=== PATIENT | female | born 2000 | race Two or more races ===

== ENCOUNTER 2020-10-29 05:41 | Emergency (ER) | payer OTHER ==
[~2020-10-29] VITALS: Ht 152.4 cm; Wt 51.4 kg
[2020-10-29] MEDS ORDERED: IBUPROFEN 400 MG TABLET PO ONE (07:00)
[2020-10-29 09:37] VITALS: BP 150/78
== END 2020-10-29 09:47 | disposition home or self-care (01) ==
LOC: EMS 05:42
DX: S01.01XA Laceration without foreign body of scalp, initial encounter (principal); S16.1XXA Strain of muscle, fascia and tendon at neck level, initial encounter; F17.210 Nicotine dependence, cigarettes, uncomplicated; Y04.0XXA Assault by unarmed brawl or fight, initial encounter; Y93.89 Activity, other specified; Y92.89 Other specified places as the place of occurrence of the external cause; Y99.8 Other external cause status
CPT/HCPCS: 70450; 70486; 72125; 99285